=== PATIENT | female | born 1935 | race Caucasian/White ===

== ENCOUNTER 2017-09-02 22:27 | Inpatient (IN) | payer OTHER ==
[~2017-09-02] VITALS: Ht 170.2 cm; Wt 83.1 kg
[2017-09-02 23:21] LABS: BASOPHIL % 0.5 % (0-2); RED CELL DISTRIBUTION WIDTH 13.7 % (11.5-14.5)
[2017-09-02 23:22] LABS: CALCIUM 8.4 mg/dL (8.5-10.1); CARBON DIOXIDE 25.7 mmol/L (21-32); CHLORIDE SERUM 104 mmol/L (98-107); CREATININE SERUM 0.8 mg/dL (0.6-1.0); GLUCOSE SERUM 123 mg/dL (74-106); PLATELET COUNT 121 x10^3mcL (130-400); POTASSIUM SERUM 3.9 mmol/L (3.5-5.1); SODIUM SERUM 141 mmol/L (136-145)
[2017-09-02 23:38] LABS: ALBUMIN 3.5 g/dL (3.4-5.0); ALKALINE PHOSPHATASE 85 U/L (46-116); ALT/SGPT 12 U/L (14-59); AST/SGOT 18 U/L (15-37); BILIRUBIN TOTAL 0.6 mg/dL (0.20-1.00); TOTAL PROTEIN, SERUM 6.6 g/dL (6.4-8.2)
[2017-09-03 00:24] LABS: microscopic required? YES; urine erythrocyte NEGATIVE (NEGATIVE)
[2017-09-03 05:48] VITALS: BP 178/86
[2017-09-03 06:49] LABS: BASOPHIL % 0.7 % (0-2); PLATELET COUNT 162 x10^3mcL (130-400); RED CELL DISTRIBUTION WIDTH 13.4 % (11.5-14.5)
[2017-09-03 07:22] LABS: CALCIUM 8.5 mg/dL (8.5-10.1); CARBON DIOXIDE 29.4 mmol/L (21-32); CHLORIDE SERUM 106 mmol/L (98-107); CHOLESTEROL 175 mg/dL (<200); CHOLESTEROL/HDL RATIO 4.1; CREATININE SERUM 0.9 mg/dL (0.6-1.0); GLUCOSE SERUM 109 mg/dL (74-106); HDL CHOLESTEROL 43 mg/dL (40-60); PHOSPHOROUS 3.8 mg/dL (2.5-4.9); POTASSIUM SERUM 3.7 mmol/L (3.5-5.1); SODIUM SERUM 143 mmol/L (136-145); TRIGLYCERIDES 62 mg/dL (<150)
[2017-09-03 07:29] LABS: FREE T4 0.97 ng/dL (0.76-1.46); FREE THYROXINE INDEX 1.9 ug/dL (1.4-4.5); T4(THYROXINE) 5.6 ug/dL (4.7-13.3)
[2017-09-03 07:40] LABS: T3 TOTAL 1.1 ng/mL
[2017-09-03 08:05] VITALS: BP 175/95
[2017-09-03 13:10] VITALS: BP 145/84
[2017-09-03 15:32] LABS: AMPHETAMINE QUAL UR NONE DETECTED (See below)
[2017-09-03 16:23] VITALS: BP 150/86
[2017-09-03] MEDS ORDERED: DEPAKOTE ER250 M1 PO (18:52)
[2017-09-03] MEDS ORDERED: SYNTHROID0.075 MG PO (18:53)
[2017-09-03] MEDS ORDERED: ZESTRIL20 MG PO (18:54)
[2017-09-03] MEDS ORDERED: SEROQUEL25 MG PO (18:55)
[2017-09-03] MEDS ORDERED: VENLAFAXINE225 M1 PO (18:56)
[2017-09-03] MEDS ORDERED: ALPRAZOLAM0.25 MG PO (18:57)
[2017-09-03] MEDS ORDERED: LOPERAMIDE HCL2 M1 PO (18:59)
[2017-09-03] MEDS ORDERED: MAPAP500 M3 PO (19:00)
[2017-09-03] MEDS ORDERED: GOOD NEIGH1200 MG/15 PO (19:02)
[2017-09-03 21:36] VITALS: BP 165/95
[2017-09-04 05:57] VITALS: BP 152/93
[2017-09-04 10:00] VITALS: BP 145/89
[2017-09-04 13:33] VITALS: BP 139/82
[2017-09-04 18:03] VITALS: BP 175/87
[2017-09-04 21:39] VITALS: BP 144/76
[2017-09-05 05:27] VITALS: BP 179/98
[2017-09-05 08:49] LABS: BASOPHIL % 0.3 % (0-2); PLATELET COUNT 162 x10^3mcL (130-400); RED CELL DISTRIBUTION WIDTH 13.6 % (11.5-14.5)
[2017-09-05 09:40] LABS: CALCIUM 9.2 mg/dL (8.5-10.1); CARBON DIOXIDE 32.1 mmol/L (21-32); CHLORIDE SERUM 106 mmol/L (98-107); CREATININE SERUM 0.8 mg/dL (0.6-1.0); GLUCOSE SERUM 127 mg/dL (74-106); POTASSIUM SERUM 4.1 mmol/L (3.5-5.1); SODIUM SERUM 144 mmol/L (136-145)
[2017-09-05 09:44] VITALS: BP 178/95
[2017-09-05 12:15] VITALS: Ht 170.2 cm; Wt 83.1 kg
[2017-09-05 12:35] VITALS: BP 158/87
[2017-09-05] MEDS ORDERED: ZESTRIL40 MG PO (12:37)
[2017-09-05 13:02] VITALS: BP 140/70
== END 2017-09-05 14:34 | DRG 884 ==
LOC: ED 22:27 → DU 09-03 04:56
PROVIDERS: Emergency Medicine; Family Medicine; Internal Medicine
DX: F03.91 Unspecified dementia, unspecified severity, with behavioral disturbance (principal); G93.41 Metabolic encephalopathy; N39.0 Urinary tract infection, site not specified; I16.0 Hypertensive urgency; N18.9 Chronic kidney disease, unspecified; J32.3 Chronic sphenoidal sinusitis; E03.9 Hypothyroidism, unspecified; Z68.26 Body mass index [BMI] 26.0-26.9, adult; Z96.642 Presence of left artificial hip joint
CPT/HCPCS: 83880; 84439; 97110-GP; 97116-GP; 97530-GP; J0696; J3490; J7030; Q0092

== ENCOUNTER 2018-03-28 21:01 | Emergency (ER) | payer OTHER ==
[~2018-03-28] VITALS: Ht 180.3 cm; Wt 81.6 kg
[~2018-03-28 21:01] MED LIST: ALPRAZOLAM0.25 MG PO; DEPAKOTE ER250 M1 PO; GOOD NEIGH1200 MG/15 PO; LOPERAMIDE HCL2 M1 PO; MAPAP500 M3 PO; SEROQUEL25 MG PO; SYNTHROID0.075 MG PO; VENLAFAXINE225 M1 PO; ZESTRIL20 MG PO; ZESTRIL40 MG PO
[2018-03-28 21:07] VITALS: Ht 180.3 cm; Wt 81.6 kg
[2018-03-28 22:08] LABS: BASOPHIL % 0.6 % (0-2); PLATELET COUNT 157 x10^3mcL (130-400)
[2018-03-28 22:21] LABS: CALCIUM 8.8 mg/dL (8.5-10.1); CARBON DIOXIDE 32.2 mmol/L (21-32); CHLORIDE SERUM 105 mmol/L (98-107); GLUCOSE SERUM 114 mg/dL (74-106); SODIUM SERUM 143 mmol/L (136-145)
[2018-03-28 22:26] LABS: ALBUMIN 3.5 g/dL (3.4-5.0); ALKALINE PHOSPHATASE 74 U/L (46-116); ALT/SGPT 29 U/L (14-59); AST/SGOT 27 U/L (15-37); BILIRUBIN TOTAL 0.57 mg/dL (0.20-1.00); TOTAL PROTEIN, SERUM 7.1 g/dL (6.4-8.2)
[2018-03-28 22:50] LABS: FREE T4 0.86 ng/dL (0.76-1.46)
[2018-03-28 23:25] VITALS: BP 174/101
== END 2018-03-28 23:25 | disposition home or self-care (01) ==
LOC: ED 21:01
PROVIDERS: Emergency Medicine
DX: M54.5 Low back pain (principal); M54.2 Cervicalgia; F01.50 Vascular dementia, unspecified severity, without behavioral disturbance, psychotic disturbance, mood disturbance, and anxiety; I10 Essential (primary) hypertension; Z88.2 Allergy status to sulfonamides; Z88.8 Allergy status to other drugs, medicaments and biological substances; Z88.1 Allergy status to other antibiotic agents; W18.39XA Other fall on same level, initial encounter; Y93.89 Activity, other specified; Y92.89 Other specified places as the place of occurrence of the external cause; Y99.8 Other external cause status
CPT/HCPCS: 36415; 84439

== ENCOUNTER 2018-04-02 10:38 | Emergency (ER) | payer OTHER ==
[~2018-04-02] VITALS: Ht 172.7 cm; Wt 81.6 kg
[2018-04-02 10:49] VITALS: Ht 172.7 cm; Wt 81.6 kg
[2018-04-02 11:41] LABS: BASOPHIL % 0.3 % (0-2); PLATELET COUNT 155 x10^3mcL (130-400); RED CELL DISTRIBUTION WIDTH 14.2 % (11.5-14.5)
[2018-04-02 11:47] LABS: CALCIUM 9.3 mg/dL (8.5-10.1); CARBON DIOXIDE 28.5 mmol/L (21-32); CHLORIDE SERUM 106 mmol/L (98-107); CREATININE SERUM 1.3 mg/dL (0.6-1.0); GLUCOSE SERUM 262 mg/dL (74-106); POTASSIUM SERUM 4.4 mmol/L (3.5-5.1); SODIUM SERUM 145 mmol/L (136-145)
[2018-04-02 11:51] LABS: ALBUMIN 3.6 g/dL (3.4-5.0); ALKALINE PHOSPHATASE 91 U/L (46-116); ALT/SGPT 66 U/L (14-59); AST/SGOT 43 U/L (15-37); BILIRUBIN TOTAL 1.22 mg/dL (0.20-1.00); LIPASE 78 IU/L (73-393); TOTAL PROTEIN, SERUM 7.7 g/dL (6.4-8.2)
[2018-04-02 12:41] LABS: UA SPECIFIC GRAVITY >=1.030 (1.005-1.035); microscopic required? YES; urine erythrocyte 2+ (NEGATIVE)
[2018-04-02 13:17] VITALS: BP 142/86
== END 2018-04-02 13:17 | disposition home or self-care (01) ==
LOC: ED 10:38
PROVIDERS: Emergency Medicine
DX: E11.65 Type 2 diabetes mellitus with hyperglycemia (principal); I10 Essential (primary) hypertension; F03.90 Unspecified dementia, unspecified severity, without behavioral disturbance, psychotic disturbance, mood disturbance, and anxiety; Z88.2 Allergy status to sulfonamides; Z88.1 Allergy status to other antibiotic agents; Z88.8 Allergy status to other drugs, medicaments and biological substances; Z90.49 Acquired absence of other specified parts of digestive tract; Z90.710 Acquired absence of both cervix and uterus
CPT/HCPCS: 82962; J7030; J7040; Q0092